=== PATIENT | female | born 1950 | race Caucasian/White ===

== ENCOUNTER → 2016-09-09 | Outpatient (CLI) | payer BC ==
[2016-09-09 15:54] LABS: EKG EKG PERFORMED
[2016-09-09 16:35] LABS: Basophils # (A) 0.1 k/uL (0-0.2); Basophils % (A) 1 %; CH 28.7; CHCM 31.9; Eosinophils # (A) 0.3 k/uL (0-0.7); Eosinophils % (A) 5 %; HCT 40.3 % (34.0-46.0); HDW 2.23; HGB 12.9 gm/dL (11.4-16.0); Luc # (Auto) 0.17; Luc % (Auto) 3; Lymphocytes % (A) 32 %; MCH 28.9 pg (25.0-35.0); MCV 90.3 fL (80.0-100.0); Mean Platelet Volume 6.5; Monocytes # (A) 0.4 k/uL (0-1.0); Monocytes % (A) 7 %; Neutrophils # (A) 3.2 k/uL (1.3-7.7); Neutrophils % (A) 52 %; RBC 4.46 m/uL (3.80-5.40); RDW 12.8 % (11.5-15.5); WBC 6.1 k/uL (3.8-10.6); WBC (Perox) 6.14
[2016-09-09 16:42] LABS: Anion Gap 11 mmol/L; Blood Urea Nitrogen 22 mg/dL (7-17); Carbon Dioxide 28 mmol/L (22-30); Chloride 104 mmol/L (98-107); Glucose 79 mg/dL (74-99); Non-African American GFR(MDRD) >60 (>60 ml/min/1.73 sqM); Potassium 4.4 mmol/L (3.5-5.1); Sodium 143 mmol/L (137-145)
== END | disposition home or self-care (01) ==
LOC: LABWHC1 15:40
PROVIDERS: ATTEND Obstetrics & Gynecology
DX: Z01.810 Encounter for preprocedural cardiovascular examination (principal); Z01.812 Encounter for preprocedural laboratory examination; N81.4 Uterovaginal prolapse, unspecified
CPT/HCPCS: 36415; 80051; 82565; 82947; 84520; 85025; 86850; 86900; 86901; 87086; 93005

== ENCOUNTER 2016-09-17 05:53 | Day surgery (SDC) | payer BC, OTHER ==
[2016-09-09 10:53] VITALS: BMI 20.9
[~2016-09-17 05:53] MED LIST: ceFAZolin 2 GM in SODIUM CHLORIDE 0.9% 100 ML IVPB ONE
[2016-09-17] MEDS ORDERED: ONDANSETRON 4 MG/2 ML VIAL IVP ONE (06:00)
[2016-09-17] MEDS ORDERED: HYDROmorphone 1 MG/ML 1 ML SYRINGE IVP PRN (06:00)
[2016-09-17] MEDS ORDERED: DEXAMETHASONE SOD PHOSPHATE 10 MG/ML 1 ML VIAL IV ONE (06:00)
[2016-09-17] MEDS ORDERED: MIDAZOLAM 2 MG/2 ML VIAL IV PRN (06:00)
[2016-09-17] MEDS ORDERED: LACTATED RINGERS 1,000 ML IV SCH (06:00)
[2016-09-17] MEDS ORDERED: LIDOCAINE 1% 20 ML VIAL (10MG/ML) FOR IV START INTRADERMA ONE (06:33)
[2016-09-17] MEDS ORDERED: fentaNYL (PF) 50 MCG/ML 2 ML AMP ONE (07:27)
[2016-09-17] MEDS ORDERED: PROPOFOL 10 MG/ML 20 ML VIAL IV ONE (07:27)
[2016-09-17] MEDS ORDERED: MIDAZOLAM 2 MG/2 ML VIAL ONE (07:27)
[2016-09-17] MEDS ORDERED: LIDOCAINE 1% INJ 10MG/ML (20 ML MDV) ONE (07:27)
[2016-09-17] MEDS ORDERED: MORPHINE SULFATE (PF) 0.3 MG/0.3 ML SYR ONE (07:27)
[2016-09-17] MEDS ORDERED: METOCLOPRAMIDE 5 MG/ML 2 ML VIAL IVP PRN (07:36)
[2016-09-17] MEDS ORDERED: SIMETHICONE 80 MG CHEWABLE PO PRN (07:36)
[2016-09-17] MEDS ORDERED: ONDANSETRON 4 MG/2 ML VIAL IVP PRN (07:36)
[2016-09-17] MEDS ORDERED: KETOROLAC 30 MG/ML 1 ML VIAL IVP PRN (07:36)
[2016-09-17] MEDS ORDERED: Acetaminophen-Codeine 300-30mg TAB PO PRN ×2 (07:36)
[2016-09-17] MEDS ORDERED: VASOPRESSIN 20 UNIT in SODIUM CHLORIDE 0.9% 60 ML SQ ONE (07:47)
[2016-09-17] MEDS ORDERED: BACITRACIN 500 UNIT/GM OINT 28.4 GM TUBE TOPICAL ONE (08:15)
[2016-09-17] MEDS ORDERED: LACTATED RINGERS 1,000 ML IV ONE (08:17)
--- NOTE | 2016-09-17 08:37 | P.OP ---
Date of Procedure: 09/17/16 Preoperative Diagnosis: 1. Symptomatic grade 3 cystocele #2. Grade 2-3 uterine prolapse Postoperative Diagnosis: Same Procedure(s) Performed: #1. Vaginal hysterectomy #2. Anterior colporrhaphy Anesthesia: spinal (With sedation) Surgeon: Nikunj Walker Engineer Byproduct #1: Kiara Sunshine Estimated Blood Loss (ml): 10 IV fluids (ml): 750 Urine output (ml): 60 Pathology: other (Uterus) Condition: stable Disposition: PACU Operative Findings: Preoperative pelvic examination confirmed the above findings. Intraoperatively , the ovaries were not seen but were palpable and atrophic and benign in nature. Description of Procedure: The patient was prepped and draped in usual fashion after spinal anesthesia was administered by the anesthesiologist. A weighted speculum was placed and the cervix grasped with a single-tooth tenaculum. The bladder was drained of approximately 50 mL of clear maxi urine. The cervicovaginal mucosa was infused with diluted vasopressin solution and incised circumferentially at the cervicovaginal junction. The mucosa was then reflected distally and both sharp and blunt fashion. The posterior peritoneum was identified and incised sharply with the Richards scissors and then tagged with a stitch of 2-0 Vicryl for later use. The short weighted speculum was replaced with the long weighted speculum in the mucosa further reflected. The uterosacral ligaments on each side were clamped with curved Priyanka-Petersburg clamps, cut, and suture ligated with transfixion stitches of 0 Vicryl. Serial bites were taken up the cardinal ligament towards the utero-ovarian ligament on each side, each taken with a curved Priyanka-Peters[place] clamp, cut, and suture-ligated with a transfixion stitch of 0 Vicryl. After several bites on each side, the uterus was inverted and the anterior bladder peritoneum identified and incised sharply with the Bovie. The utero-ovarian ligament on each side was clamped with a curved Priyanka -Petersburg clamp, cut, and suture-ligated with a transfixion stitch of 0 Vicryl followed by a free tie of 0 Vicryl. The ovaries could not be seen or palpated and benign. All pedicles appeared to be dry. The long weighted speculum was then replaced with the short weighted speculum and the previously placed stitch of 2-0 Vicryl utilized to close the parietal peritoneum in a pursestring stitch. The pedicles were again examined and found to be hemostatic. The uterosacral ligaments were then passed through each other with a stitch of 0 Vicryl including the contralateral mucosa in a modified Aguilar's culdoplasty. The intervening open vaginal mucosa posteriorly was closed with interrupted [id number] stitches of 0 Vicryl. 2 Allis clamps were then placed along the superior margin of the mucosal incision. The vesicovaginal mucosa was then infused with diluted vasopressin, undermined in the midline with Metzenbaum scissors and divided to the apex near the urethra. The mucosa was then sharply and bluntly reflected from the underlying tissues. Once adequate reflection had been carried out, serial Dorita plication stitches were placed from the urethral apex to the top of the vagina with 2-0 PDS. The intervening vaginal mucosa was then trimmed and the vaginal mucosa closed with a running locking stitch of 2-0 Vicryl. Prior to placing the Dorita plication stitches, a Douglas catheter had been placed demonstrating 10 mL of clear maxi urine. Following closure of the mucosa, hemostasis appeared excellent. The vagina was packed with one-inch iodophor covered with bacitracin ointment. Estimated blood loss for the case was approximately 10 mL. There were no complications. All sponge, instrument, and needle counts were correct. The patient tolerated the procedure well and proceeded to the recovery room in stable condition.
[2016-09-17] MEDS ORDERED: NALBUPHINE 10 MG/ML AMPUL IV PRN (10:46)
[2016-09-17] MEDS ORDERED: PROMETHAZINE INJ 6.25 MG in SODIUM CHLORIDE 0.9% 50 ML IVPB PRN (10:46)
[2016-09-17] MEDS ORDERED: NALOXONE 0.4 MG/ML 1 ML VIAL IV PRN (10:46)
[2016-09-17] MEDS ORDERED: MORPHINE SULFATE 4 MG/ML SYRINGE IVP PRN (10:46)
[2016-09-17] MEDS: SENNOSIDES-DOCUSATE SODIUM 1 EACH TAB PO SCH ×2 (21:38→21:49)
[2016-09-17] MEDS: diphenhydrAMINE 50 MG/ML 1 ML VIAL IVP PRN (21:40)
[2016-09-18] MEDS: LACTATED RINGERS 1,000 ML IV SCH ×2 (00:35)
[2016-09-18 06:57] VITALS: BP 102/59; PULSE 75; TEMP 97.9
--- NOTE | 2016-09-18 08:19 | P.PN ---
Progress Note - Text 0744 Anesthesia POD 1. Patient is status post vaginal hysterectomy and anterior colporrhaphy under spinal anesthesia with intra-thecal preservative free morphine and 100 g. Minimal pruritus, good post-op analgesia, and no headache or other complication.
--- NOTE | 2016-09-18 08:33 | P.DS ---
Providers Expected date of discharge: 09/18/16 Attending physician: Nikunj Walker Primary care physician: Ike Garcia - Discharge Diagnosis(es) (1) Cystocele Current Visit: Yes Status: Acute (2) Uterine prolapse Current Visit: Yes Status: Acute Hospital Course: The patient is a 66-year-old woman who presented to the office with complaints of pressure from pelvic organ prolapse. She was found to have a grade 3 cystocele and grade 2-3 uterine prolapse. She was counseled regarding options and wished to undergo surgical repair. She is taken the operating room where she underwent vaginal hysterectomy with anterior repair and an uncomplicated fashion. Her postoperative course has been unremarkable with vital signs stable and she has been afebrile throughout. She is tolerating regular diet and reports of passing flatus. Her only complaint is of mild to moderate vulvar discomfort when seated. She is carrying out all activities of daily living. Her Douglas catheter has been removed this morning and she is currently undergoing voiding trial which is pending. Should she be able to void adequately, she will be discharged home to follow-up in the office in 2 weeks for recheck and 6 weeks routinely. Discharge instructions included calling for any significantly increased vaginal bleeding, fever, pain, GI concerns, or anything else that concerned her. She is additionally instructed to have nothing in the vagina for at least 6 weeks time to include intercourse and to abstain from any heavy lifting over the same period of time. She was then instructed to do no driving until off of all pain medications, or 2 weeks' time , whichever came first. Discharge hemoglobin and hematocrit are pending at the time of this dictation but blood loss at surgery was minimal. Procedures: #1. Vaginal hysterectomy #2. Anterior colporrhaphy Patient Condition at Discharge: Good Plan - Discharge Summary New Discharge Prescriptions: Acetaminophen-Codeine 300-30mg [Tylenol #3] 2 tab PO Q6H PRN #20 tablet PRN Reason: Pain Discharge Medication List Grapeseed 1 tab PO DIRECTED 09/15/15 [History] Acetaminophen-Codeine 300-30mg [Tylenol #3] 2 tab PO Q6H PRN #20 tablet [Rx] Follow up Appointment(s)/Referral(s): Nikunj Walker MD [STAFF PHYSICIAN] - 2 Weeks Discharge Disposition: HOME SELF-CARE
[2016-09-18] MEDS: SENNOSIDES-DOCUSATE SODIUM 1 EACH TAB PO SCH (09:03)
[2016-09-18] MEDS: IBUPROFEN 600 MG TAB PO PRN ×2 (09:13→15:09)
[2016-09-18] MEDS: diphenhydrAMINE 50 MG/ML 1 ML VIAL IVP PRN (09:14)
[2016-09-18 09:55] VITALS: RESP 20
[2016-09-18 11:00] LABS: Basophils # (A) 0.2 k/uL (0-0.2); Basophils % (A) 2 %; CH 29.1; CHCM 31.6; Eosinophils # (A) 0.1 k/uL (0-0.7); Eosinophils % (A) 1 %; HDW 2.25; HGB 12.1 gm/dL (11.4-16.0); Luc # (Auto) 0.14; Luc % (Auto) 1; Lymphocytes # (A) 1.8 k/uL (1.0-4.8); Lymphocytes % (A) 18 %; MCH 29.4 pg (25.0-35.0); MCHC 31.8 g/dL (31.0-37.0); MCV 92.5 fL (80.0-100.0); Mean Platelet Volume 7.9; Monocytes # (A) 0.8 k/uL (0-1.0); Monocytes % (A) 8 %; Neutrophils % (A) 70 %; RBC 4.11 m/uL (3.80-5.40); RDW 12.8 % (11.5-15.5); WBC (Perox) 10.69
== END 2016-09-18 15:29 | disposition home or self-care (01) ==
LOC: OR 05:53 → 6PED 08:29 → OR 09-18 15:29
PROVIDERS: ATTEND Obstetrics & Gynecology
DX: N81.2 Incomplete uterovaginal prolapse (principal); N72 Inflammatory disease of cervix uteri; N87.9 Dysplasia of cervix uteri, unspecified; D26.1 Other benign neoplasm of corpus uteri
CPT/HCPCS: 85025; 88307; 58260; 57240; J1200 ×2; J1100; J0690; J2405; 86850; 86900; 86901; 88305

== ENCOUNTER → 2017-04-19 | Outpatient (CLI) | payer BC ==
[2017-04-19 10:30] LABS: ALT 29 U/L (9-52); AST 27 U/L (14-36); Alkaline Phosphatase 88 U/L (38-126); Anion Gap 6 mmol/L; Blood Urea Nitrogen 17 mg/dL (7-17); Calcium 9.8 mg/dL (8.4-10.2); Carbon Dioxide 27 mmol/L (22-30); Chloride 106 mmol/L (98-107); Cholesterol 271 mg/dL (<200); Glucose 84 mg/dL (74-99); HDL Cholesterol 78 mg/dL (40-60); Non-African American GFR(MDRD) >60 (>60 ml/min/1.73 sqM); Sodium 139 mmol/L (137-145); Total Bilirubin 0.7 mg/dL (0.2-1.3); Total Protein 7.8 g/dL (6.3-8.2)
== END | disposition home or self-care (01) ==
LOC: LABWHC1 09:31
PROVIDERS: ATTEND Internal Medicine
DX: Z00.00 Encounter for general adult medical examination without abnormal findings (principal); D51.0 Vitamin B12 deficiency anemia due to intrinsic factor deficiency
CPT/HCPCS: 36415; 80053; 80061

== ENCOUNTER → 2023-02-03 | Outpatient (CLI) | payer BC, MEDICARE ==
[2023-02-04 18:28] LABS: Glucose 82 mg/dL (70-110); LDL Cholesterol,Calculated 172.3 mg/dL (0.0-131.0)
== END | disposition home or self-care (01) ==
LOC: LABWHC1 09:19
PROVIDERS: ATTEND Internal Medicine
DX: Z00.00 Encounter for general adult medical examination without abnormal findings (principal)
CPT/HCPCS: 36415; 80061; 82947

== ENCOUNTER → 2023-12-23 | Outpatient (CLI) | payer BC ==
[2023-12-23 15:17] LABS: Blood Urea Nitrogen 22.5 mg/dL (9.0-27.0); Glucose 88 mg/dL (70-110); LDL Cholesterol,Calculated 193.4 mg/dL (0.0-131.0); VLDL Calculation 17.02 mg/dL (5.00-40.00)
[2023-12-23 15:18] LABS: ALT 18 U/L (8-44); AST 20 U/L (13-35); Albumin 4.4 g/dL (3.8-4.9); Albumin/Globulin Ratio 1.57 Ratio (1.60-3.17); Alkaline Phosphatase 100 U/L (41-126); Calcium 9.8 mg/dL (8.7-10.3); Carbon Dioxide 25.9 mmol/L (21.6-31.8); Chloride 106 mmol/L (96-109); Globulin 2.8 g/dL (1.6-3.3); Potassium 4.6 mmol/L (3.5-5.5); Sodium 141 mmol/L (135-145); Total Bilirubin 0.4 mg/dL (0.3-1.2); Total Protein 7.2 g/dL (6.2-8.2)
[2023-12-23 15:52] LABS: Basophils # (A) 0.07 X 10*3/uL (0.00-0.10); Basophils % (A) 1.1 %; Eosinophils # (A) 0.36 X 10*3/uL (0.04-0.35); Eosinophils % (A) 5.6 %; HCT 44.5 % (37.2-46.3); HGB 14.1 g/dL (12.0-15.0); Lymphocytes # (A) 1.84 X 10*3/uL (0.90-5.00); Lymphocytes % (A) 28.4 %; MCH 28.5 pg (27.0-32.0); MCHC 31.7 g/dL (32.0-37.0); MCV 90.1 FL (80.0-97.0); Mean Platelet Volume 8.9 FL (9.5-12.2); Monocytes % (A) 9.3 %; NRBC Per 100 WBC 0 X 10*3/uL (0.00-0.01); Neutrophils # (A) 3.59 X 10*3/uL (1.80-7.70); Neutrophils % (A) 55.3 %; Platelet Count 290 X 10*3/uL (140-440); RBC 4.94 X 10*6/uL (4.10-5.20); RDW 13.5 % (11.5-14.5); WBC 6.48 X 10*3/uL (4.50-10.00)
== END | disposition home or self-care (01) ==
LOC: LABWHC1 08:13
PROVIDERS: ATTEND Internal Medicine
DX: Z00.00 Encounter for general adult medical examination without abnormal findings (principal); Z11.59 Encounter for screening for other viral diseases
CPT/HCPCS: 36415; 80053; 80061; 84443; 85025; 86803